=== PATIENT | female | born 1945 | race Caucasian/White ===

== ENCOUNTER 2018-06-13 23:17 | Emergency (ER) | payer OTHER, MEDICAID ==
[~2018-06-13] VITALS: Ht 152.4 cm; Wt 56.2 kg
[~2018-06-13 23:17] MED LIST: UNKOWN HTN MED
[2018-06-13 23:24] VITALS: BP 128/71
--- NOTE | 2018-06-13 23:32 | NUR ---
TO ER BED 11
--- NOTE | 2018-06-13 23:52 | NUR ---
BIB DAUGHTER WITH REPORTS OF LEFT SIDED RIB PAIN S/P FALL ON WEDNESDAY. SHARP PAIN, WORSE WITH MOVEMENT AND BREATHING. 7/10 ACHING PAIN, NON RADIATING. DENIES CP/SOB/NVD.
[2018-06-14] MEDS ORDERED: NACL 0.9% 1,000 ML IV ONE (00:29)
[2018-06-14] MEDS ORDERED: MORPHINE SULFATE 4 MG/ML SYR IVP ONE (00:30)
[2018-06-14] MEDS ORDERED: ONDANSETRON 4 MG/2 ML VIAL IVP ONE ×2 (00:30→01:40)
[2018-06-14] MEDS ORDERED: fentaNYL 0.05 MG/ML VIAL IVP ONE (00:35)
[2018-06-14 00:49] LABS: BASOPHILS # (AUTO) 0.1 K/uL (0.00-0.22); BASOPHILS % (AUTO) 0.7 % (0.0-2.0); EOSINOPHILS # (AUTO) 0.4 K/uL (0-0.4); EOSINOPHILS % (AUTO) 4.2 % (0.0-4.0); HEMATOCRIT 37.9 % (36-48); HEMOGLOBIN 12.6 g/dL (12.0-16.0); LYMPHOCYTES # (AUTO) 3.3 K/uL (2.5-16.5); LYMPHOCYTES % (AUTO) 38.7 % (20.5-51.1); MEAN CORPUSCULAR HEMOGLOBIN 31 pg (27-31); MEAN CORPUSCULAR HGB CONC 33 g/dL (33-37); MEAN CORPUSCULAR VOLUME 91.8 fL (80-94); MONOCYTES # (AUTO) 0.6 K/uL (0.8-1.0); MONOCYTES % (AUTO) 6.7 % (1.7-9.3); NEUTROPHILS # (AUTO) 4.2 K/uL (1.8-7.7); NEUTROPHILS % (AUTO) 49.7 % (42.2-75.2); PLATELET COUNT (AUTO) 249 K/uL (140-450); RED BLOOD CELL COUNT(AUTO) 4.13 MIL/uL (4.20-5.40); RED CELL DISTRIBUTION WIDTH 13.3 % (11.6-13.7); WHITE BLOOD COUNT (AUTO) 8.5 K/uL (4.8-10.8)
[2018-06-14 01:10] LABS: APPEARANCE,URINE CLEAR (CLEAR); BILIRUBIN,URINE NEGATIVE (NEGATIVE); BLOOD, URINE NEGATIVE (NEGATIVE); COLOR,URINE YELLOW (YELLOW); LEUKOCYTE ESTERASE ,URINE 2+ (NEGATIVE); NITRITE, URINE NEGATIVE (NEGATIVE); PH,URINE 5.5 (5.0-9.0); UGLUCOSE NEGATIVE (NEGATIVE)
[2018-06-14 01:26] LABS: CHLORIDE 104 mmol/L (98-107); POTASSIUM 4.2 mmol/L (3.5-5.1); SODIUM SERUM 141 mmol/L (136-145)
[2018-06-14 01:27] LABS: ALBUMIN 3.8 g/dL (3.4-5.0); ANION GAP 13.3 (8-16); ASPARTATE AMINOTRANSFERASE 20 U/L (15-37); CARBON DIOXIDE 27.9 mmol/L (21-32); CREATININE 0.6 mg/dL (0.6-1.3); GLUCOSE 136 mg/dL (74-106); LIPASE 154 U/L (73-393); TOTAL BILIRUBIN 0.3 mg/dL (0.0-1.0); UREA NITROGEN, BLOOD 20 mg/dL (7-18)
[2018-06-14 01:35] LABS: WBC,URINE 20-60 /HPF (0-5)
[2018-06-14] MEDS ORDERED: ACETAMINOPHEN EXTRA STRENGTH 500 MG TAB PO ONE (01:40)
--- NOTE | 2018-06-14 01:40 | NUR ---
PT LAYING IN BED HIGH BUTLER'S, DAUGHTER AT BEDSIDE. PT REPORTS SAME PAIN LEVEL 9/10 LUQ PAIN, RADIATING TO L LATERAL SIDE DESPITE FENTANYL 50MCG IVP. PT REPORTS NAUSEA WITH 1 EPISODE VOMITING AT THIS TIME DESPITE ZOFRAN 4MG IVP. DR LEES MADE AWARE. MEDS ORDERED. PT REFUSED FURTHER MEDS AT THIS TIME. PT TAKEN TO CT SCAN VIA WHEELCHAIR.
--- NOTE | 2018-06-14 01:50 | NUR ---
PER QUALITY ASSURANCE ASSESSOR, PT REFUSED IV CONTRAST, DR LEES MADE AWARE BY QUALITY ASSURANCE ASSESSOR, CT ABD/PELV WITH IV CONTRAST TO BE SWITCHED TO CT ABD/PELV WITHOUT IV CONTRAST.
--- NOTE | 2018-06-14 02:00 | NUR ---
PT BACK FROM CT
--- NOTE | 2018-06-14 02:30 | NUR ---
PT LAYING IN BED, RR EVEN AND UNLABORED. PT DENIES NAUSEA AT THIS TIME. PT REPORTS 9/10 LUQ PAIN RADIATING TO L LATERAL SIDE. PT REFUSED TYLENOL PO OR ZOFRAN IVP AT THIS TIME. ALL NEEDS MET.
[2018-06-14] MEDS: KETOROLAC 30 MG/ML VIAL IVP ONE ×2 (02:46→03:26)
--- NOTE | 2018-06-14 02:50 | NUR ---
PT REMAINS IN PAIN, DENIES NAUSEA. PT REFUSED TORADOL IVP DESPITE EDUCATION. ER MD MADE AWARE.
--- NOTE | 2018-06-14 03:01 | NUR ---
RT AT BEDSIDE TO GIVE PT WITH INCENTIVE SPIROMETER WITH INSTRUCTION
--- NOTE | 2018-06-14 03:05 | NUR ---
GAVE PATIENT INCENTIVE SPIROMETER, PT DID 2 BREATHS AT 1500 CC. PT IN PAIN AND FEELS LIKE THROWING UP
--- NOTE | 2018-06-14 03:15 | NUR ---
DR LEES AT BEDSIDE
[2018-06-14 03:33] VITALS: BP 135/69
--- NOTE | 2018-06-14 03:33 | NUR ---
Patient discharged with v/s stable. Written and verbal after care instructions given and explained. Patient alert, oriented and verbalized understanding of instructions. Ambulatory with steady gait. All questions addressed prior to discharge. ID band removed. Patient advised to follow up with PMD. Rx of ACETAMINOPHEN, NAPROSYN given. Patient educated on indication of medication including possible reaction and side effects. Opportunity to ask questions provided and answered.
== END 2018-06-14 03:33 | disposition home or self-care (01) ==
LOC: MED 23:17
DX: S20.212A Contusion of left front wall of thorax, initial encounter (principal); R10.12 Left upper quadrant pain; I10 Essential (primary) hypertension; Z88.5 Allergy status to narcotic agent; Z98.890 Other specified postprocedural states; W18.09XA Striking against other object with subsequent fall, initial encounter; Y93.89 Activity, other specified; Y92.89 Other specified places as the place of occurrence of the external cause; Y99.8 Other external cause status
CPT/HCPCS: 36415; 74176; 80053; 81001; 83690; 85025; 87086; 96374; 96375; 99284; J1885; J2405; J3010; J7030